=== PATIENT | male | born 1995 | race Caucasian/White ===

== ENCOUNTER 2017-09-04 09:06 | Emergency (ER) | payer OTHER ==
[~2017-09-04] VITALS: Ht 175.3 cm; Wt 93.9 kg
[2017-09-04 09:08] VITALS: BP 118/72
[2017-09-04 09:53] LABS: HEMATOCRIT 44.8 % (39.2-51.8); HEMOGLOBIN 15.5 g/dL (13.7-18.0); WHITE BLOOD COUNT 4.7 x10^3/uL (4.5-13.2)
[2017-09-04 10:06] LABS: ASPARTATE AMINO TRANSFERASE 35 U/L (15-37); BLOOD UREA NITROGEN 9 mg/dL (7-18)
[2017-09-04 10:08] LABS: RAPID INFLUENZA A Negative (Negative); RAPID INFLUENZA B Negative (Negative)
== END 2017-09-04 11:06 | disposition home or self-care (01) ==
LOC: ED 11:05
DX: B34.9 Viral infection, unspecified (principal)
CPT/HCPCS: 36415; 71020; 80053; 81003; 85025; 87400; 99285